=== PATIENT | female | born 2000 | race Caucasian/White ===

== ENCOUNTER 2021-08-18 22:37 | Emergency (ER) | payer OTHER ==
[~2021-08-18] VITALS: Ht 165.1 cm; Wt 81.8 kg
[~2021-08-18 22:37] MED LIST: ABILIFY2 MG PO; ADDERALL XR20 MG PO; ALBUTEROL0.09 MG/A4 IH; CARAFATE1 GM PO; MAALOX 225 MG/150 ML PO; NEXIUM 40MG40 MG PO; NORCO 325 MG-51 TAB PO; PEPCID 20MG TAB20 MG PO; PREDNISONE10 MG PO; PRIL40; PULMICORT180 MCG/Ac IH; VITAMIN D2000 I1 PO; XOPENEX HF0.045 MG/A IH; ZITHROMAX 250M250 MG PO
[2021-08-19 00:09] LABS: COLLECTION METHOD CLEAN CATCH
[2021-08-19 00:18] LABS: PH 6 (5-8); SQUAMOUS EPITHELIAL 0-2 /hpf; URINE APPEARANCE Clear; URINE BACTERIA None Seen /hpf; URINE BILIRUBIN Negative (NEGATIVE); URINE BLOOD Negative (NEGATIVE); URINE COLOR Straw; URINE GLUCOSE Negative (NEGATIVE); URINE KETONE Negative (NEGATIVE); URINE LEUKOCYTE ESTERASE Negative (NEGATIVE); URINE NITRATE Negative (NEGATIVE); URINE PROTEIN(semi-quant) Negative (NEGATIVE); URINE RBC 0-2 /hpf; URINE UROBILINOGEN Negative (NEGATIVE)
[2021-08-19 00:28] LABS: ALBUMIN 4.6 gm/dL (3.5-5.0); BILIRUBIN,TOTAL 0.3 mg/dL (0.2-1.2); CALCIUM 10.2 mg/dL (8.4-10.2); CREATININE, serum 0.84 mg/dL (0.57-1.11); POTASSIUM 3.8 mmol/L (3.5-4.5); TOTAL PROTEIN 8.1 gm/dL (6.2-8.1)
[2021-08-19 00:31] LABS: BASO % 0.3 % (0.0-2.0); EOS # 0.1 K/mm3 (0.0-0.7); EOS % 0.7 % (0-4.0); GRAN # 5.6 K/mm3 (1.4-6.5); GRAN % 61.7 % (42.2-75.2); HEMATOCRIT 42.4 % (35.0-45.0); HEMOGLOBIN 14.5 g/dl (12.0-15.0); LYMPH # 2.6 K/mm3 (1.2-3.4); LYMPH % 28.8 % (20.0-51.0); MEAN CELL VOLUME 99 fl (80.0-95.0); MEAN CORPUSCULAR HEMOGLOBIN 34 pg (26.0-32.0); MEAN CORPUSCULAR HGB CONC 34 g/dl (33.0-37.0); MEAN PLATELET VOLUME 9.7 fl (7.4-10.4); MONO # 0.8 K/mm3 (0.1-0.6); MONO % 8.3 % (1.7-9.3); PLATELET COUNT 274 K/mm3 (130-400); RED BLOOD COUNT 4.27 M/mm3 (4.10-5.30); REDCELL DISTRIBUTION WIDTH-CV 11.8 % (11.5-14.5)
[2021-08-19 01:29] VITALS: BP 111/68; PULSE 82; TEMP 98.4
== END 2021-08-19 01:30 | disposition home or self-care (01) ==
LOC: COL.ER 22:37
PROVIDERS: Emergency Medicine Emergency Medical Services
DX: N20.0 Calculus of kidney (principal)
CPT/HCPCS: J1885; J2405; J7030; Q9967